=== PATIENT | female | born 1995 | race Caucasian/White ===

== ENCOUNTER 2019-02-17 10:00 | Emergency (ER) | payer OTHER, SELFPAY ==
[2019-02-17 10:03] VITALS: BP 122/80; PULSE 89; RESP 14; TEMP 36.6; O2SAT 100
[2019-02-17] MEDS: SODIUM CHLORIDE 0.9% 1,000 ML 1000 ML IV (10:35)
[2019-02-17] MEDS: ONDANSETRON 4 MG/2 ML INJ IV (10:35)
--- NOTE | 2019-02-17 10:39 | ED.ABDPAIN ---
HPI - Abdominal Pain General Chief Complaint: Abdominal Pain Stated Complaint: RADIATING PAIN IN LOWER BACK/ABD Time Seen by Provider: 02/17/19 10:39 Source: patient Mode of arrival: ambulatory Limitations: no limitations History of Present Illness HPI narrative: This is a 24-year-old female who comes in with complaint of fevers and chills. Patient states she started having lower back pain on both sides that then started radiating over to the left front of her abdomen. Patient states she has had sort of similar symptoms when she has had kidney stones in the past. Patient states that she has had a little bit of dysuria this morning. No frequency or urgency otherwise. She was nauseated but no vomiting. She took 650 and then 500 mg of Tylenol and a dose of naproxen and her symptoms are starting to improve. She does not feel nauseated anymore. Patient states that she does have an IUD, it has been in place for several years. She felt the strings earlier today but was concerned that something might have happened to it. She states there was not any event or anything that would cause her to think that it had moved or changed. She had some mild spotting today. She has a little bit early for her normal. Patient does take medication for ADHD, thyroid. She has not had any surgeries. She has not had any intervention for kidney stones in the past. Related Data Home Medications Medication Instructions Recorded Confirmed clonidine HCl 0.1 mg PO BEDTIME 02/17/19 02/17/19 dextroamphetamine-amphetamine 10 mg PO DAILY 02/17/19 02/17/19 fluoxetine 20 mg PO DAILY 02/17/19 02/17/19 levothyroxine 50 mcg PO DAILY 02/17/19 02/17/19 Allergies Allergy/AdvReac Type Severity Reaction Status Date / Time No Known Drug Allergies Allergy Verified 02/17/19 10:07 Review of Systems Review of Systems ROS Unobtainable: All systems reviewed & are unremarkable except as noted in HPI and below Constitutional Reports body ache(s), Reports chills, Reports fever(s), Denies lethargy and Denies weakness Cardiovascular Denies chest pain, Denies syncope, Denies dyspnea, Denies dyspnea on exertion and Denies orthopnea Respiratory Denies dyspnea and Denies dyspnea on exertion Gastrointestinal Gastrointestinal: Denies abdominal pain, Denies change in bowel habits, Denies change in stool character, Denies diarrhea, Reports nausea and Denies vomiting Genitourinary Reports as per HPI, Reports abnormal vaginal bleeding (Spotting), Reports dysuria, Reports flank pain, Denies urinary incontinence, Denies urinary hesitancy and Denies vaginal discharge Musculoskeletal Reports back pain Neurologic Denies syncope and Denies weakness [facility] Medical History Attention deficit disorder (Acute) Depression (Acute) IUD (intrauterine device) in place (Acute) Kidney stone (Acute) Social History Smoking Status: Never smoker Social History Smoking Status: Never smoker Exam Narrative Exam Narrative: GENERAL: Alert and oriented x three, well-nourished, well-appearing female in mild distress. HEENT: Head normocephalic, atraumatic, EOMI, pupils reactive, face symmetric, moist mucous membranes NECK: Supple, full range of motion CARDIOVASCULAR: Regular rate and rhythm without murmurs, rubs or gallops. RESPIRATORY: Breath sounds equal bilaterally, no wheezes rales or rhonchi. ABDOMEN: Soft, moderate left lower quadrant tenderness. Normoactive bowel sounds all 4 quadrants. No guarding or rebound, rigidity, no mass : Mild left CVA tenderness, no right CVA tenderness. EXTREMITIES: Normal range of motion, no clubbing or edema. Neurovascularly intact NEUROLOGICAL: Cranial nerves II through XII grossly intact. Moving all extremities. Normal gait. The patient does appear little uncomfortable while walking. SKIN: Warm, dry, no petechiae, no rashes or lesions. Initial Vital Signs Initial Vital Signs: Vital Signs Temperature 97.9 F 02/17/19 10:03 Pulse Rate 89 02/17/19 10:03 Respiratory Rate 14 02/17/19 10:03 Blood Pressure 122/80 02/17/19 10:03 Pulse Oximetry 100 02/17/19 10:03 Course Orders Ordered: ED Orders 02/17/19 10:24 Complete Blood Count AUTO DIFF Stat Comprehensive Metabolic Panel Stat Lactate (Lactic Acid) Stat Lipase Stat 02/17/19 10:45 Partial Thromboplastin Time Stat Prothrombin Time INR Stat 02/17/19 10:47 US pelvic complete Stat US renal complete Stat Discontinued Medications Sodium Chloride (Normal Saline 0.9%) 1,000 mls @ 1,000 mls/hr IV BOLUS ONE Stop: 02/17/19 11:12 Last Infusion: 02/17/19 11:29 Dose: 0 mls/hr Admin: 02/17/19 10:35 Dose: 1,000 mls/hr Ondansetron HCl (Zofran) 4 mg IV NOW ONE Stop: 02/17/19 10:13 Last Admin: 02/17/19 10:35 Dose: 4 mg Vital Signs - 8 hr 02/17/19 13:13 Pulse Rate 71 Respiratory Rate 18 Blood Pressure 96/54 L Pulse Oximetry 97 MDM - Abdominal Pain Lab Data Attestation: I reviewed the patient's lab results. Result diagrams: 02/17/19 10:24 02/17/19 10:24 Lab Results 02/17/19 02/17/19 02/17/19 Range/Units 10:24 10:24 10:24 WBC 13.4 H (4.5-11.0) X10^3/uL RBC 4.80 (4.0-5.2) X10^6/uL Hgb 13.1 (12.0-16.0) g/dL Hct 38.4 (36-46) % MCV 80.0 (80-100) fL MCH 27.3 (26-34) PG MCHC 34.1 (30-36) % RDW 13.4 (11.6-14.8) % Plt Count 186 (150-400) X10^3/uL Neut % (Auto) 84.5 H (50-75) % Lymph % (Auto) 7.7 L (25-40) % Emery % (Auto) 7.5 (3-14) % Eos % (Auto) 0.1 L (2-4) % Baso % (Auto) 0.2 (0-2) % Neut # (Auto) 01798 H (6679-1463) /uL Lymph # (Auto) 1000 L (9678-2877) /uL Emery # (Auto) 1000 H (0-900) /uL Eos # (Auto) 0 (0-450) /uL Baso # (Auto) 0 (0-100) /uL PT (10.1-12.7) SECONDS INR (0.9-1.3) APTT (26.4-36.2) SECONDS Sodium 137 (137-145) mmol/L Potassium 3.6 (3.4-5.1) mmol/L Chloride 101 (98-107) mmol/L Carbon Dioxide 25 (22-32) mmol/L BUN 6 L (7-17) mg/dL Creatinine 0.70 (0.52-1.04) mg/dL Estimated GFR > 60.0 (>60) mL/min BUN/Creatinine Ratio 8.6 (6-22) Glucose 124 H (70-100) mg/dL Lactate 2.0 (0.7-2.1) mmol/L Calcium 9.0 (8.4-10.2) mg/dL Total Bilirubin 1.0 (0.2-1.3) mg/dL AST 27 (14-36) IU/L ALT 15 (9-52) IU/L Alkaline Phosphatase 81 (38-126) U/L Total Protein 7.2 (6.3-8.2) g/dL Albumin 4.1 (3.5-5.0) g/dL Globulin 3.1 (1.7-4.1) g/dL Albumin/Globulin Ratio 1.3 (1.0-2.8) Lipase 30 (23-300) U/L // Range/Units 10:45 WBC (4.5-11.0) X10^3/uL RBC (4.0-5.2) X10^6/uL Hgb (12.0-16.0) g/dL Hct (36-46) % MCV (80-100) fL MCH (26-34) PG MCHC (30-36) % RDW (11.6-14.8) % Plt Count (150-400) X10^3/uL Neut % (Auto) (50-75) % Lymph % (Auto) (25-40) % Emery % (Auto) (3-14) % Eos % (Auto) (2-4) % Baso % (Auto) (0-2) % Neut # (Auto) (1164-4996) /uL Lymph # (Auto) (5964-5018) /uL Emery # (Auto) (0-900) /uL Eos # (Auto) (0-450) /uL Baso # (Auto) (0-100) /uL PT 14.7 H (10.1-12.7) SECONDS INR 1.3 (0.9-1.3) APTT 33 (26.4-36.2) SECONDS Sodium (137-145) mmol/L Potassium (3.4-5.1) mmol/L Chloride (98-107) mmol/L Carbon Dioxide (22-32) mmol/L BUN (7-17) mg/dL Creatinine (0.52-1.04) mg/dL Estimated GFR (>60) mL/min BUN/Creatinine Ratio (6-22) Glucose (70-100) mg/dL Lactate (0.7-2.1) mmol/L Calcium (8.4-10.2) mg/dL Total Bilirubin (0.2-1.3) mg/dL AST (14-36) IU/L ALT (9-52) IU/L Alkaline Phosphatase (38-126) U/L Total Protein (6.3-8.2) g/dL Albumin (3.5-5.0) g/dL Globulin (1.7-4.1) g/dL Albumin/Globulin Ratio (1.0-2.8) Lipase (23-300) U/L Point of care testing: Point of Care Testing Test Results Negative Urine Dip Bedside Urine Glucose Negative Bedside Urine Bilirubin - Negative Bedside Urine Ketone - Negative Urine Specific [place] 1.010 Bedside Urine Occult Blood - Negative Bedside Urine pH 6.5 Bedside Urine Protein - Negative Bedside Urine Urobilinogen - Negative Bedside Urine Nitrite - Negative Bedside Urine Leukocytes - Negative Esterase Imaging Data renal US: Radiologist's impression: Martha Wilson 24 F 1995 [place] [address] Ultrasound Report Signed Patient: Martha Wilson MMR#: [id number] : 1995Acct:[id number] Age/Sex: 24 / FDate of Service: 02/17/19 Loc: ED Accession Number: [id number] Procedure: US renal complete Ordering Provider: Ivette Gallo D.O. PROCEDURE: US RENAL COMPLETE INDICATIONS: left flank/abdominal pain TECHNIQUE: Real-time scanning was performed of the kidneys and bladder, with image documentation. COMPARISON: [facility], US, US PELVIC COMPLETE, 02/17/2019, 11:22. [facility], CT, ABDOMEN/PELVIS WITH CONTRAST, 05/20/2011, 10:14. FINDINGS: Kidneys: Kidneys are normal in size. Right kidney measures 12.6 cm long; left kidney measures 11.6 cm long. Right renal cortical thickness is 1.2 cm; left renal cortical thickness is 1.1 cm. Renal cortical echotexture is normal. Multiple echogenic foci are present in the lower right pole, appearing similar to 2011. Minimal prominence of the right renal pelvis. No suspicious solid mass lesions. Right renal cysts are noted. Bladder: Pre-void bladder volume is 357 mL. Post-void residual is 17 mL. Pre-void images demonstrate no intraluminal masses or stones. On pre-void images, bilateral ureteral jets are noted with color Doppler interrogation. (Of note, ureteral jets may not be detectable in up to 25% of cases due to insufficient differences in specific gravity between ureteral and bladder urine). Miscellaneous: No free pelvic fluid. IMPRESSION: Mild right renal collecting system prominence with relatively unchanged nephrolithasis. Dictated by: Sonia Shine M.D. on 02/17/2019 at 12:07 Approved by: Sonia Shine M.D. on 02/17/2019 at 12:16 pelvic US: Radiologist's impression: [facility] DATE TYPE STATUS AUTHOR Hx 02/17/19 10:47 Fabio Amaro 02/17/19 10:47 Sonia Shine Kaitlyn M 24, F0 1995 DEP ER, ED.LOC - Main ED 74.843kg Abdominal Pain Search Chart ONSET Today 13:13 WilsonMartha 24 F 1995 [place] [address] Ultrasound Report Signed Patient: Martha Wilson MMR#: [id number] : 1995Acct:[id number] Age/Sex: 24 / FDate of Service: 02/17/19 Loc: ED Accession Number: [id number] Procedure: US pelvic complete Ordering Provider: Ivette Gallo D.O. PROCEDURE: US PELVIC COMPLETE INDICATIONS: concern for IUD placement/kidney infect/stone TECHNIQUE: Real-time scanning was performed of the pelvic organs, with image documentation. Additional endovaginal scanning was necessary due to incomplete visualization of the adnexal and endometrial structures by transabdominal scanning. COMPARISON: None. FINDINGS: Transabdominal scanning: Please refer to ultrasound of kidneys for further evaluation of bilateral kidneys. No pathologic free abdominal or pelvic fluid. Endovaginal scanning: Uterus: Uterus is normal in size at 7 x 3.7 x 5.9 cm. no discrete uterine fibroid is seen. Intrauterine device is seen within its normal central endometrial location. No gross endometrial mass or fluid is seen. Multiple nabothian cysts are noted along endocervical canal. Ovaries: Right ovary measures 3.9 x 2.4 x 3 cm in size. Left ovary measures 2.9 x 2 x 1.4 cm in size. Subcentimeter follicles are seen in bilateral ovaries. 1.9 x 1.5 x 1.8 cm heterogeneously hypoechoic structure in right ovary is seen. No internal vascularity is seen. Trace amount of free fluid is seen adjacent to right ovary. IMPRESSION: 1. Intrauterine device is noted in its normal central location. No gross endometrial mass or fluid. 2. Possible corpus luteal cyst in right ovary. No gross solid appearing ovarian lesion. No evidence of ovarian torsion. 3. Please see renal ultrasound findings. Dictated by: Fabio Amaro M.D. on 02/17/2019 at 12:04 Approved by: Fabio Amaro M.D. on 02/17/2019 at 12:10 MDM Narrative Medical decision making narrative: Patient was sleeping when I return she is feeling better. We reviewed her ultrasound does show her IUD is a placed in the is a corpus luteum cyst. Patient's renal ultrasound was also reviewed shows some small stones of the right which is the opposite side of her pain and no significant changes. We did review her lab work including slightly elevated white count. Patient's urine does not show any or sign of infection. Patient like to return home. She defers any other medication at this time. She is comfortable following up with her physician. I did offer Flomax she could have potentially passed a kidney stone or have 1 that we are not visualizing on ultrasound but she defers. Discharge Plan Departure Patient Disposition: Home Clinical Impression: Acute left flank pain, Left sided abdominal pain Discharge Date/Time: 02/17/19 13:13 Interventions: ED Discharge Assessment Last Done: 02/17/19 13:13 Instructions: DI for Flank Pain Activity Restrictions/Additional Instructions: Follow-up with your primary care physician next 3-5 days if your symptoms have not resolved. You may continue Tylenol up to a 1000 mg every 8 hours as needed, you may also take ibuprofen up to 800 mg every 8 hours. Return to the emergency department for continued fevers greater than 100.4 F, persistent vomiting, worsening abdominal pain, black or bloody stools, increasing back or flank pain or other new or concerning symptoms. Prescriptions: No Action clonidine HCl 0.1 mg tablet 0.1 mg PO BEDTIME RF: 0 levothyroxine 50 mcg tablet 50 mcg PO DAILY RF: 0 dextroamphetamine-amphetamine 10 mg capsule,extended release 24hr 10 mg PO DAILY RF: 0 fluoxetine 20 mg capsule 20 mg PO DAILY RF: 0
[2019-02-17 10:43] LABS: Add Manual Diff / Slide Review NO; Basophils Absolute Auto 0 /uL (0-100); Basophils Percent Auto 0.2 % (0-2); Eosinophils Absolute Auto 0 /uL (0-450); Eosinophils Percent Auto 0.1 % (2-4); Hematocrit 38.4 % (36-46); Hemoglobin 13.1 g/dL (12.0-16.0); Lymphocytes Absolute Auto 1000 /uL (1100-4500); Lymphocytes Percent Auto 7.7 % (25-40); Mean Corpuscular HGB Conc 34.1 % (30-36); Mean Corpuscular Hemoglobin 27.3 PG (26-34); Monocytes Absolute Auto 1000 /uL (0-900); Monocytes Percent Auto 7.5 % (3-14); Neutrophils Absolute Auto 11400 /uL (1500-7000); Neutrophils Percent Auto 84.5 % (50-75); Platelet Count 186 X10^3/uL (150-400); Red Cell Distribution Width 13.4 % (11.6-14.8); White Blood Cell Count 13.4 X10^3/uL (4.5-11.0)
--- NOTE | 2019-02-17 10:47 | DI.US.S_ITS ---
PROCEDURE: US PELVIC COMPLETE INDICATIONS: concern for IUD placement/kidney infect/stone TECHNIQUE: Real-time scanning was performed of the pelvic organs, with image documentation. Additional endovaginal scanning was necessary due to incomplete visualization of the adnexal and endometrial structures by transabdominal scanning. COMPARISON: None. FINDINGS: Transabdominal scanning: Please refer to ultrasound of kidneys for further evaluation of bilateral kidneys. No pathologic free abdominal or pelvic fluid. Endovaginal scanning: Uterus: Uterus is normal in size at 7 x 3.7 x 5.9 cm. no discrete uterine fibroid is seen. Intrauterine device is seen within its normal central endometrial location. No gross endometrial mass or fluid is seen. Multiple nabothian cysts are noted along endocervical canal. Ovaries: Right ovary measures 3.9 x 2.4 x 3 cm in size. Left ovary measures 2.9 x 2 x 1.4 cm in size. Subcentimeter follicles are seen in bilateral ovaries. 1.9 x 1.5 x 1.8 cm heterogeneously hypoechoic structure in right ovary is seen. No internal vascularity is seen. Trace amount of free fluid is seen adjacent to right ovary. IMPRESSION: 1. Intrauterine device is noted in its normal central location. No gross endometrial mass or fluid. 2. Possible corpus luteal cyst in right ovary. No gross solid appearing ovarian lesion. No evidence of ovarian torsion. 3. Please see renal ultrasound findings. Dictated by: Fabio Amaro M.D. on 02/17/2019 at 12:04 Approved by: Fabio Amaro M.D. on 02/17/2019 at 12:10
--- NOTE | 2019-02-17 10:47 | DI.US.S_ITS ---
PROCEDURE: US RENAL COMPLETE INDICATIONS: left flank/abdominal pain TECHNIQUE: Real-time scanning was performed of the kidneys and bladder, with image documentation. COMPARISON: [facility], US, US PELVIC COMPLETE, 02/17/2019, 11:22. [facility], CT, ABDOMEN/PELVIS WITH CONTRAST, 05/20/2011, 10:14. FINDINGS: Kidneys: Kidneys are normal in size. Right kidney measures 12.6 cm long; left kidney measures 11.6 cm long. Right renal cortical thickness is 1.2 cm; left renal cortical thickness is 1.1 cm. Renal cortical echotexture is normal. Multiple echogenic foci are present in the lower right pole, appearing similar to 2011. Minimal prominence of the right renal pelvis. No suspicious solid mass lesions. Right renal cysts are noted. Bladder: Pre-void bladder volume is 357 mL. Post-void residual is 17 mL. Pre-void images demonstrate no intraluminal masses or stones. On pre-void images, bilateral ureteral jets are noted with color Doppler interrogation. (Of note, ureteral jets may not be detectable in up to 25% of cases due to insufficient differences in specific gravity between ureteral and bladder urine). Miscellaneous: No free pelvic fluid. IMPRESSION: Mild right renal collecting system prominence with relatively unchanged nephrolithasis. Dictated by: Sonia Shine M.D. on 02/17/2019 at 12:07 Approved by: Sonia Shine M.D. on 02/17/2019 at 12:16
[2019-02-17 10:52] LABS: Alanine Aminotransferase 15 IU/L (9-52); Albumin 4.1 g/dL (3.5-5.0); Albumin Globulin Ratio 1.3 (1.0-2.8); Alkaline Phosphatase 81 U/L (38-126); Aspartate Aminotransferase 27 IU/L (14-36); BUN Creatinine Ratio 8.6 (6-22); Blood Urea Nitrogen 6 mg/dL (7-17); Carbon Dioxide 25 mmol/L (22-32); Chloride 101 mmol/L (98-107); Estimated Glomerular Filt Rate > 60.0 mL/min (>60); Globulin 3.1 g/dL (1.7-4.1); Glucose 124 mg/dL (70-100); HEMOLYSIS < 15 (0-50); Lipase 30 U/L (23-300); Potassium 3.6 mmol/L (3.4-5.1); Sodium 137 mmol/L (137-145); Total Protein 7.2 g/dL (6.3-8.2)
--- NOTE | 2019-02-17 10:52 | ED_ITS ---
HPI - Abdominal Pain General Chief Complaint: Abdominal Pain Stated Complaint: RADIATING PAIN IN LOWER BACK/ABD Time Seen by Provider: 02/17/19 10:39 Source: patient Mode of arrival: ambulatory Limitations: no limitations History of Present Illness HPI narrative: This is a 24-year-old female who comes in with complaint of fevers and chills. Patient states she started having lower back pain on both sides that then started radiating over to the left front of her abdomen. Patient states she has had sort of similar symptoms when she has had kidney stones in the past. Patient states that she has had a little bit of dysuria this morning. No frequency or urgency otherwise. She was nauseated but no vomiting. She took 650 and then 500 mg of Tylenol and a dose of naproxen and her symptoms are starting to improve. She does not feel nauseated anymore. Patient states that she does have an IUD, it has been in place for several years. She felt the strings earlier today but was concerned that something might have happened to it. She states there was not any event or anything that would cause her to think that it had moved or changed. She had some mild spotting today. She has a little bit early for her normal. Patient does take medication for ADHD, thyroid. She has not had any surgeries. She has not had any intervention for kidney stones in the past. Related Data Home Medications Medication Instructions Recorded Confirmed clonidine HCl 0.1 mg PO BEDTIME 02/17/19 02/17/19 dextroamphetamine-amphetamine 10 mg PO DAILY 02/17/19 02/17/19 fluoxetine 20 mg PO DAILY 02/17/19 02/17/19 levothyroxine 50 mcg PO DAILY 02/17/19 02/17/19 Allergies Allergy/AdvReac Type Severity Reaction Status Date / Time No Known Drug Allergies Allergy Verified 02/17/19 10:07 Review of Systems Review of Systems ROS Unobtainable: All systems reviewed & are unremarkable except as noted in HPI and below Constitutional Reports body ache(s), Reports chills, Reports fever(s), Denies lethargy and D enies weakness Cardiovascular Denies chest pain, Denies syncope, Denies dyspnea, Denies dyspnea on exertion and Denies orthopnea Respiratory Denies dyspnea and Denies dyspnea on exertion Gastrointestinal Gastrointestinal: Denies abdominal pain, Denies change in bowel habits, Denies change in stool character, Denies diarrhea, Reports nausea and Denies vomiting Genitourinary Reports as per HPI, Reports abnormal vaginal bleeding (Spotting), Reports dysuria, Reports flank pain, Denies urinary incontinence, Denies urinary hesitancy and Denies vaginal discharge Musculoskeletal Reports back pain Neurologic Denies syncope and Denies weakness FOR[facility]LY [facility] Medical History Attention deficit disorder (Acute) Depression (Acute) IUD (intrauterine device) in place (Acute) Kidney stone (Acute) Social History Smoking Status: Never smoker Social History Smoking Status: Never smoker Exam Narrative Exam Narrative: GENERAL: Alert and oriented x three, well-nourished, well- appearing female in mild distress. HEENT: Head normocephalic, atraumatic, EOMI, pupils reactive, face symmetric, m oist mucous membranes NECK: Supple, full range of motion CARDIOVASCULAR: Regular rate and rhythm without murmurs, rubs or gallops. RESPIRATORY: Breath sounds equal bilaterally, no wheezes rales or rhonchi. ABDOMEN: Soft, moderate left lower quadrant tenderness. Normoactive bowel sounds all 4 quadrants. No guarding or rebound, rigidity, no mass : Mild left CVA tenderness, no right CVA tenderness. EXTREMITIES: Normal range of motion, no clubbing or edema. Neurovascularly intact NEUROLOGICAL: Cranial nerves II through XII grossly intact. Moving all extremities. Normal gait. The patient does appear little uncomfortable while walking. SKIN: Warm, dry, no petechiae, no rashes or lesions. Initial Vital Signs Initial Vital Signs: Vital Signs Temperature 97.9 F 02/17/19 10:03 Pulse Rate 89 02/17/19 10:03 Respiratory Rate 14 02/17/19 10:03 Blood Pressure 122/80 02/17/19 10:03 Pulse Oximetry 100 02/17/19 10:03 Course Orders Ordered: ED Orders 02/17/19 10:24 Complete Blood Count AUTO DIFF Stat Comprehensive Metabolic Panel Stat Lactate (Lactic Acid) Stat Lipase Stat 02/17/19 10:45 Partial Thromboplastin Time Stat Prothrombin Time INR Stat 02/17/19 10:47 US pelvic complete Stat US renal complete Stat Discontinued Medications Sodium Chloride (Normal Saline 0.9%) 1,000 mls @ 1,000 mls/hr IV BOLUS ONE Stop: 02/17/19 11:12 Last Infusion: 02/17/19 11:29 Dose: 0 mls/hr Admin: 02/17/19 10:35 Dose: 1,000 mls/hr Ondansetron HCl (Zofran) 4 mg IV NOW ONE Stop: 02/17/19 10:13 Last Admin: 02/17/19 10:35 Dose: 4 mg Vital Signs - 8 hr 02/17/19 13:13 Pulse Rate 71 Respiratory Rate 18 Blood Pressure 96/54 L Pulse Oximetry 97 MDM - Abdominal Pain Lab Data Attestation: I reviewed the patient's lab results. Result diagrams: 02/17/19 10:24 02/17/19 10:24 Lab Results 02/17/19 02/17/19 02/17/19 Range/Units 10:24 10:24 10:24 WBC 13.4 H (4.5-11.0) X10^3/uL RBC 4.80 (4.0-5.2) X10^6/uL Hgb 13.1 (12.0-16.0) g/dL Hct 38.4 (36-46) % MCV 80.0 (80-100) fL MCH 27.3 (26-34) PG MCHC 34.1 (30-36) % RDW 13.4 (11.6-14.8) % Plt Count 186 (150-400) X10^3/uL Neut % (Auto) 84.5 H (50-75) % Lymph % (Auto) 7.7 L (25-40) % [place] % (Auto) 7.5 (3-14) % Eos % (Auto) 0.1 L (2-4) % Baso % (Auto) 0.2 (0-2) % Neut # (Auto) 22835 H (9860-9095) /uL Lymph # (Auto) 1000 L (3087-6913) /uL [place] # (Auto) 1000 H (0-900) /uL Eos # (Auto) 0 (0-450) /uL Baso # (Auto) 0 (0-100) /uL PT (10.1-12.7) SECONDS INR (0.9-1.3) APTT (26.4-36.2) SECONDS Sodium 137 (137-145) mmol/L Potassium 3.6 (3.4-5.1) mmol/L Chloride 101 (98-107) mmol/L Carbon Dioxide 25 (22-32) mmol/L BUN 6 L (7-17) mg/dL Creatinine 0.70 (0.52-1.04) mg/dL Estimated GFR > 60.0 (>60) mL/min BUN/Creatinine Ratio 8.6 (6-22) Glucose 124 H (70-100) mg/dL Lactate 2.0 (0.7-2.1) mmol/L Calcium 9.0 (8.4-10.2) mg/dL Total Bilirubin 1.0 (0.2-1.3) mg/dL AST 27 (14-36) IU/L ALT 15 (9-52) IU/L Alkaline Phosphatase 81 (38-126) U/L Total Protein 7.2 (6.3-8.2) g/dL Albumin 4.1 (3.5-5.0) g/dL Globulin 3.1 (1.7-4.1) g/dL Albumin/Globulin Ratio 1.3 (1.0-2.8) Lipase 30 (23-300) U/L / Range/Units 10:45 WBC (4.5-11.0) X10^3/uL RBC (4.0-5.2) X10^6/uL Hgb (12.0-16.0) g/dL Hct (36-46) % MCV (80-100) fL MCH (26-34) PG MCHC (30-36) % RDW (11.6-14.8) % Plt Count (150-400) X10^3/uL Neut % (Auto) (50-75) % Lymph % (Auto) (25-40) % [place] % (Auto) (3-14) % Eos % (Auto) (2-4) % Baso % (Auto) (0-2) % Neut # (Auto) (5821-1395) /uL Lymph # (Auto) (8755-9112) /uL [place] # (Auto) (0-900) /uL Eos # (Auto) (0-450) /uL Baso # (Auto) (0-100) /uL PT 14.7 H (10.1-12.7) SECONDS INR 1.3 (0.9-1.3) APTT 33 (26.4-36.2) SECONDS Sodium (137-145) mmol/L Potassium (3.4-5.1) mmol/L Chloride (98-107) mmol/L Carbon Dioxide (22-32) mmol/L BUN (7-17) mg/dL Creatinine (0.52-1.04) mg/dL Estimated GFR (>60) mL/min BUN/Creatinine Ratio (6-22) Glucose (70-100) mg/dL Lactate (0.7-2.1) mmol/L Calcium (8.4-10.2) mg/dL Total Bilirubin (0.2-1.3) mg/dL AST (14-36) IU/L ALT (9-52) IU/L Alkaline Phosphatase (38-126) U/L Total Protein (6.3-8.2) g/dL Albumin (3.5-5.0) g/dL Globulin (1.7-4.1) g/dL Albumin/Globulin Ratio (1.0-2.8) Lipase (23-300) U/L Point of care testing: Point of Care Testing Test Results Negative Urine Dip Bedside Urine Glucose Negative Bedside Urine Bilirubin - Negative Bedside Urine Ketone - Negative Urine Specific [place] 1.010 Bedside Urine Occult Blood - Negative Bedside Urine pH 6.5 Bedside Urine Protein - Negative Bedside Urine Urobilinogen - Negative Bedside Urine Nitrite - Negative Bedside Urine Leukocytes - Negative Esterase Imaging Data renal US: Radiologist's impression: Martha Wilson 24 [place] 1995 [place] [address] Ultrasound Report Signed Patient: Martha Wilson MMR#: [id number] : 1995Acct:[id number] Age/Sex: te of Service: 02/17/19 Loc: ED Accession Number: [id number] Procedure: US renal complete Ordering Provider: Ivette Gallo D.O. PROCEDURE: US RENAL COMPLETE INDICATIONS: left flank/abdominal pain TECHNIQUE: Real-time scanning was performed of the kidneys and bladder, with image documentation. COMPARISON: [facility], US, US PELVIC COMPLETE, 02/17/2019, 11:22. [facility], CT, ABDOMEN/PELVIS WITH CONTRAST, 05/20/2011, 10:14. FINDINGS: Kidneys: Kidneys are normal in size. Right kidney measures 12.6 cm long; left kidney measures 11.6 cm long. Right renal cortical thickness is 1.2 cm; left renal cortical thickness is 1.1 cm. Renal cortical echotexture is normal. Multiple echogenic foci are present in the lower right pole, appearing similar to 2011. Minimal prominence of the right renal pelvis. No suspicious solid mass lesions. Right renal cysts are noted. Bladder: Pre-void bladder volume is 357 mL. Post-void residual is 17 mL. Pre- void images demonstrate no intraluminal masses or stones. On pre-void images, bilateral ureteral jets are noted with color Doppler interrogation. (Of note, ureteral jets may not be detectable in up to 25% of cases due to insufficient differences in specific gravity between ureteral and bladder urine). Miscellaneous: No free pelvic fluid. IMPRESSION: Mild right renal collecting system prominence with relatively unchanged nephrolithasis. Dictated by: Sonia Shine M.D. on 02/17/2019 at 12:07 Approved by: Sonia Shine M.D. on 02/17/2019 at 12:16 pelvic US: Radiologist's impression: [facility] DATE TYPE STATUS AUTHOR Hx 02/17/19 10:47 Fabio Amaro 02/17/19 10:47 Sonia Shine Kaitlyn M 24, F0 1995 DEP ER, ED.LOC - Main ED 74.843kg Abdominal Pain Search Chart ONSET Today 13:13 Martha Wilson 24 F 1995 [place] [id number] Ultrasound Report Signed Patient: Martha Wilson MMR#: [id number] : 1995Acct:[id number] Age/Sex: 24 / FDate of Service: 02/17/19 Loc: ED Accession Number: [id number] Procedure: US pelvic complete Ordering Provider: Ivette Gallo D.O. PROCEDURE: US PELVIC COMPLETE INDICATIONS: concern for IUD placement/kidney infect/stone TECHNIQUE: Real-time scanning was performed of the pelvic organs, with image documentation. Additional endovaginal scanning was necessary due to incomplete visualization of the adnexal and endometrial structures by transabdominal scanning. COMPARISON: None. FINDINGS: Transabdominal scanning: Please refer to ultrasound of kidneys for further evaluation of bilateral kidneys. No pathologic free abdominal or pelvic fluid. Endovaginal scanning: Uterus: Uterus is normal in size at 7 x 3.7 x 5.9 cm. no discrete uterine fibroid is seen. Intrauterine device is seen within its normal central endometrial location. No gross endometrial mass or fluid is seen. Multiple nabothian cysts are noted along endocervical canal. Ovaries: Right ovary measures 3.9 x 2.4 x 3 cm in size. Left ovary measures 2.9 x 2 x 1.4 cm in size. Subcentimeter follicles are seen in bilateral ovaries. 1.9 x 1.5 x 1.8 cm heterogeneously hypoechoic structure in right ovary is seen. No internal vascularity is seen. Trace amount of free fluid is seen adjacent to right ovary. IMPRESSION: 1. Intrauterine device is noted in its normal central location. No gross endometrial mass or fluid. 2. Possible corpus luteal cyst in right ovary. No gross solid appearing ovarian lesion. No evidence of ovarian torsion. 3. Please see renal ultrasound findings. Dictated by: Fabio Amaro M.D. on 02/17/2019 at 12:04 Approved by: Fabio Amaro M.D. on 02/17/2019 at 12:10 MDM Narrative Medical decision making narrative: Patient was sleeping when I return she is feeling better. We reviewed her ultrasound does show her IUD is a placed in the is a corpus luteum cyst. Patient's renal ultrasound was also reviewed shows some small stones of the right which is the opposite side of her pain and no significant changes. We did review her lab work including slightly elevated white count. Patient's urine does not show any or sign of infection. Patient like to return home. She defers any other medication at this time. She is comfortable following up with her physician. I did offer Flomax she could have potentially passed a kidney stone or have 1 that we are not visualizing on ultrasound but she defers. Discharge Plan Departure Patient Disposition: Home Clinical Impression: Acute left flank pain, Left sided abdominal pain Discharge Date/Time: 02/17/19 13:13 Interventions: ED Discharge Assessment Last Done: 02/17/19 13:13 Instructions: DI for Flank Pain Activity Restrictions/Additional Instructions: Follow-up with your primary care physician next 3-5 days if your symptoms have not resolved. You may continue Tylenol up to a 1000 mg every 8 hours as needed, you may also take ibuprofen up to 800 mg every 8 hours. Return to the emergency department for continued fevers greater than 100.4 F, persistent vomiting, worsening abdominal pain, black or bloody stools, inc reasing back or flank pain or other new or concerning symptoms. Prescriptions: No Action clonidine HCl 0.1 mg tablet 0.1 mg PO BEDTIME RF: 0 levothyroxine 50 mcg tablet 50 mcg PO DAILY RF: 0 dextroamphetamine-amphetamine 10 mg capsule,extended release 24hr 10 mg PO DAILY RF: 0 fluoxetine 20 mg capsule 20 mg PO DAILY RF: 0
[2019-02-17 11:10] LABS: INR 1.3 (0.9-1.3); Prothrombin Time 14.7 SECONDS (10.1-12.7)
[2019-02-17 11:11] LABS: PTT Partial Thromboplastin Tim 33 SECONDS (26.4-36.2)
[2019-02-17 13:13] VITALS: BP 96/54; PULSE 71; RESP 18; O2SAT 97
== END 2019-02-17 13:13 | disposition home or self-care (01) ==
PROVIDERS: Emergency Provider Emergency Medicine
DX: M54.5 Low back pain (principal); R10.9 Unspecified abdominal pain; R50.9 Fever, unspecified
CPT/HCPCS: 36415; 36591; 76770; 76830; 76856; 80053; 81003; 81025; 83605; 83690; 85025; 85610; 85730; 96361; 96374; 99283; 99284; J2405